=== PATIENT | male | born 1985 | race Caucasian/White ===

== ENCOUNTER 2024-05-23 09:50 | Outpatient (AMB) | payer BC, SELFPAY ==
--- NOTE | 2024-05-23 10:04 | A.OFFPC_ITS ---
Vital Signs 05/23/24 10:08 Height 5 ft 8 in Weight 225 lb 8 oz BMI 34.3 BP 135/66 Blood Pressure Location Rt brachial Position Sitting Respiration 16 Pulse 69 Pulse Source Pulse Oximeter Temp 98.6 F Temp Source Temporal Artery Scan Pulse Oximetry (%) 97 Oxygen Delivery Method Room Air Intake Visit Reasons: [employer] // Establish Care Intake Note: [employer] Allergies No Known Allergies Allergy (Verified 05/23/24 10:06) Medication List - Last Reconciled 05/23/24 by Kel Tran MD No Known Home Meds Tobacco use date assessed: 05/23/24 Dental Screening Dental Screen Date: 05/23/24 Did you have a dental visit in the last 12 months?: Yes Did you have a dental problem in the last 6 months where you did not have access to dental care?: No Was dental information given to patient?: Patient has dentist HPI [employer] // Establish Care HPI Details New Patient? ?? Prior PCP:? Dr Alicia Last office visit/CPE:? 3-4 yrs ago Acute issue(s):? Sleep Apnea Cysts on Arms and hip - Lipomas R Groin Pain ?? PMHx:?Denies SurgHx:? [place] Teeth FHx:? Dad: Bladder CA. Mom: Lung CA, HTN. GF Liver CA SocHx:?Nonsmoker. EtOH: About 1 dr per week. 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 1. Little interest or pleasure in doing things: not at all 2. Feeling down, depressed, or hopeless: not at all 3. Trouble falling or staying asleep, or sleeping too much: not at all 4. Feeling tired or having little energy: several days 5. Poor appetite or overeating: several days 6. Feeling bad about yourself - or that you are a failure or have let yourself or your family down: not at all 7. Trouble concentrating on things, such as reading the newspaper or watching television: not at all 8. Moving or speaking so slowly that other people could have noticed. Or the opposite - being so fidgety or restless that you have been moving around a lot more than usual: not at all 9. Thoughts that you would be better off or of hurting yourself in some way: not at all Total score: 2 Depression Screening Interpretation: Negative Depression Screening Done: Yes 40262 - PHQ-9 Billing: Yes Source: Developed by Drs. Otto Renteria, Comfort Gunter, Major Gomez and colleagues, with an educational karri from [employer]. Thrive Questionnaire Date Thrive assessed: 05/23/24 I am a: Patient What is your living situation today?: I have a steady place to live Within the past 12 months, did the food you bought not last and you didn't have the money to get more?: I choose not to answer this question Within the past 12 months, did you worry whether your food would run out before you got money to buy more?: Never true Do you have trouble paying for medicines?: No Do you have trouble getting transportation to medical appointments?: No Do you have trouble paying your heating and electricity bill?: No Do you have trouble taking care of your child, family member or friend?: No Do you have trouble with day-to-day activities such as bathing, preparing meals, shopping, managing finances, etc.?: No Are you currently unemployed and looking for a job?: No Are you interested in more education?: Yes Please select the resources that you would like help with: None Currently or been in a relationship where the following occur: No concerns reported THRIVE Score: 0 AUDIT C Alcohol Use Questionnaire (AUDIT-C) 1. How often do you have a drink containing alcohol?: 2-4 times a month 2. How many drinks containing alcohol do you have on a typical day when you are drinking?: 1 or 2 3. How often do you have six or more drinks on one occasion?: Less than monthly Total Score: 3 Score Reviewed/Action Taken: Yes ANDREW-7 AMB Questionnaire ANDREW-7 Date ANDREW - 7 assessed: 10/16/24 Feeling nervous, anxious, or on edge: 1 = Several days Not being able to stop or control worryin = Not at all Worrying too much about different things: 1 = Several days Trouble relaxin = Not at all Being so restless that it is hard to sit still: 0 = Not at all Becoming easily annoyed or irritable: 0 = Not at all Feeling afraid as if something awful might happen: 0 = Not at all Total ANDREW-7 score (0-4 normal; 5-9 mild; 10-14 moderate; 15-21 severe): 2 Source: Developed by Drs. Otto Renteria, Comfort Gunter, Major Gomez and colleagues, with an educational karri from [employer]. Review of Systems Const Denies chills, Denies fatigue, Denies fever(s), Denies headache(s) and Denies weakness ENT Denies dizziness and Denies headache(s) Card Denies chest pain, Denies lightheadedness, Denies dyspnea and Denies other ( Palpitations) Resp Denies cough, Denies dyspnea, Denies wheezing and Denies other ( shortness of breath) Musc Denies numbness and Denies tingling Neuro Denies dizziness, Denies headache(s), Denies numbness, Denies tingling, Denies paresthesias and Denies weakness Psych Denies anxiety and Denies depression Endo Denies fatigue Aller/Immun Denies wheezing Physical exam (Primary Care) Vital Signs: Last Vital Signs Temp 98.6 F 05/23/24 10:08 Pulse 69 05/23/24 10:08 Resp 16 05/23/24 10:08 BP 135/66 05/23/24 10:08 Pulse Ox 97 05/23/24 10:08 Oxygen Delivery Method Room Air 05/23/24 10:08 BMI result Body Mass Index 34.3 Tobacco/Smoking Status: Tobacco use Status Tobacco use date assessed 05/23/24 05/23/24 10:10 Patient Tobacco Use Status Never used Tobacco 05/23/24 10:10 e-Cigarette/Vaping Use Never Used 05/23/24 10:10 PHQ-9: PHQ-9 Score PHQ-9: Total score 2 05/23/24 10:20 Depression Screening Interpretation: Negative Thrive Assessment: Date of Thrive Assessment Date Thrive assessed 05/23/24 05/23/24 10:10 Currently or been in a relationship where the following occur: No concerns reported Const General: no acute distress and well developed Nutritional Appearance: well nourished Orientation/consciousness: patient oriented x3 [facility] Head: Yes normocephalic and Yes atraumatic Eyes General: appearance normal, both eyes and all related structures Pupils: Equal, round and reactive pupils present EOM: EOMs intact bilaterally Resp Effort & Inspection: normal respiratory effort Auscultation: clear to auscultation bilaterally Cardio Rate: regular rate Rhythm: regular rhythm Heart sounds: S1 normal heart sound present, S2 normal heart sound present, no gallops, no murmurs and no rubs Neuro General: patient oriented x3 and gait normal Cranial nerves: Yes Equal, round and reactive pupils present Psych Affect: normal affect Coding Level of Care Code New Pt Level 3 (07960) Diagnoses Sleep apnea G47.30 Cyst of skin L72.9 Testicular pain N50.819 Family planning Z30.09 Laboratory exam ordered as part of routine general medical examination Z00.00 Assessment & Plan Assessment & Plan (1) Sleep apnea: Code(s): G47.30 - Sleep apnea, unspecified Category: Medical Plan: Patient?has?video?of?apneic?events?witnessed?by?his? Referred?to?Sleep?Medicine (2) Cyst of skin: Code(s): L72.9 - Follicular cyst of the skin and subcutaneous tissue, unspecified Category: Medical Plan: These?are?lipomas He?will?call?or?return?to?office?if?getting?large/irritated (3) Testicular pain: Code(s): N50.819 - Testicular pain, unspecified Category: Medical Plan: Right?testicular?pain Small?nodule?at?top?of?right?testicle?is?likely?epididymal?cyst No?evidence?of?hernia?on?palpation?today Check?ultrasound Encouraged?undergarments?with?good?support?and?cooling (4) Family planning: Code(s): Z30.09 - Encounter for other general counseling and advice on contraception Category: Social Hx Plan: Patient?would?like?a?referral?to?urology?and?has?a?urologist?in?mind?but?does?no t?recall?who. He?will?call?to?leave?a?message?letting?me?know?and?I?will?make?the?referral (5) Laboratory exam ordered as part of routine general medical examination: Code(s): Z00.00 - Encounter for general adult medical examination without abnormal findings Category: Medical Plan: Check?lab Orders: Orders Prostate Specific Antigen Scr Today Z12.5 - Encounter for screening for malignant neoplasm of prostate UA and rflx microscopic Today Z00.00 - Encounter for general adult medical examination without abnormal findings US scrotum Today N50.819 - Testicular pain, unspecified Comprehensive [place]. Panel Fast Today Z00.00 - Encounter for general adult medical examination without abnormal findings Lipid Panel Today Z00.00 - Encounter for general adult medical examination without abnormal findings Microalbumin, Random (w Creat) Today I10 - Essential (primary) hypertension TSH reflex Free T4 Today Z00.00 - Encounter for general adult medical examination without abnormal findings Referrals Sleep Medicine Referral G47.30 - Sleep apnea, unspecified
[2024-05-23 10:08] VITALS: BP 135/66; PULSE 69; RESP 16; TEMP 37; O2SAT 97; BMI 34.3
== END 2024-05-23 10:57 | disposition home or self-care (01) ==
PROVIDERS: Visit Provider Family Medicine
DX: G47.30 Sleep apnea, unspecified (principal); L72.9 Follicular cyst of the skin and subcutaneous tissue, unspecified; N50.819 Testicular pain, unspecified; Z30.09 Encounter for other general counseling and advice on contraception

== ENCOUNTER → 2024-05-23 09:50 | Outpatient (BNVA) | payer BC, SELFPAY | PROVIDERS: Visit Provider Family Medicine ==

== ENCOUNTER 2024-05-25 09:56 | Outpatient (REF) | payer BC, SELFPAY ==
[2024-05-25 11:44] LABS: Appearance Urine Clear; Color Urine Yellow; Glucose Urine UA Negative (Negative); Leukocyte Esterase Urine Negative (Negative); Nitrite Urine Negative (Negative); PH 6.5 (5.0-9.0); Urine Blood Negative (Negative); Urine Ketones Negative (Negative); Urine Protein Negative (Neg-Trace)
[2024-05-25 13:33] LABS: Creatinine Urine 159.02 mg/dL; Microalbum/Creatinine Ratio Ur 3.7 ug/mg cr (<30)
[2024-05-25 13:34] LABS: Alanine Aminotransferase 28 U/L (0-40); Albumin Level 4.3 g/dL (3.5-5.0); Alkaline Phosphatase 53 U/L (39-117); Anion Gap 14 (12-20); Aspartate Amino Transferase 22 U/L (5-37); Bilirubin Total 2.3 mg/dL (0.0-1.0); Blood Urea Nitrogen 16 mg/dL (9-16); Calcium 9.3 mg/dL (8.4-10.2); Carbon Dioxide 27 mmol/L (22-29); Chloride 103 mmol/L (96-108); Cholesterol 216 mg/dL (<200); Estimated Glomerular Filt Rate > 60; Glucose Fasting 98 mg/dL (60-99); HDL Cholesterol 43 mg/dL (>40); LDL Cholesterol Calculated 147 mg/dL (<100); Sodium 140 mmol/L (135-145); Total Protein 7.1 g/dL (6.5-8.0); Triglycerides 131 mg/dL (<150)
[2024-05-25 13:46] LABS: Prostate Specific Antigen Scr 0.69 ng/mL (<0.05-4.0)
[2024-05-25 13:50] LABS: TSH reflex Free T4 0.88 uIU/mL (0.32-4.0)
== END 2024-05-25 09:57 | disposition home or self-care (01) ==
LOC: HO.WFDLDS 09:56
PROVIDERS: Visit Provider Family Medicine
DX: Z00.00 Encounter for general adult medical examination without abnormal findings (principal); Z12.5 Encounter for screening for malignant neoplasm of prostate; I10 Essential (primary) hypertension
CPT/HCPCS: 36415; 80053; 80061; 81003; 82043; 82570; 84153; 84443

== ENCOUNTER 2024-06-08 15:48 | Outpatient (REF) | payer BC, SELFPAY | END 2024-06-08 15:49 | disposition home or self-care (01) | LOC: HO.US 15:48 | PROVIDERS: PCP Family Medicine; Visit Provider Family Medicine | DX: N50.819 Testicular pain, unspecified (principal) | CPT/HCPCS: 76870 ==

== ENCOUNTER → 2024-06-08 15:49 | Outpatient (BNV) | payer BC, SELFPAY | PROVIDERS: PCP Family Medicine; Visit Provider Radiology Diagnostic Radiology | DX: N50.3 Cyst of epididymis (principal) | CPT/HCPCS: 76870 ==

== ENCOUNTER 2024-08-10 11:57 | Outpatient (AMB) | payer BC, SELFPAY ==
--- NOTE | 2024-08-10 12:04 | A.OFFPC_ITS ---
Vital Signs 08/10/24 12:09 Height 5 ft 8 in Weight 222 lb BMI 33.8 BP 127/72 Blood Pressure Location Rt brachial Position Sitting Respiration 13 Pulse 77 Pulse Source Pulse Oximeter Pulse Oximetry (%) 97 Oxygen Delivery Method Room Air Intake Visit Reasons: Physical Intake Note: Annual Physical Customer Account Representative Required: No Allergies No Known Allergies Allergy (Verified 08/10/24 12:24) Medication List - [facility]10[facility]24 [facility] No Known Home Meds Tobacco use date assessed: 05/23/24 Dental Screening Dental Screen Date: 08/10/24 Did you have a dental visit in the last 12 months?: Yes Did you have a dental problem in the last 6 months where you did not have access to dental care?: No Was dental information given to patient?: Patient has dentist HPI HPI Comments History of Present Illness Details 39 y/o M with PARAMJIT, lipomas of skin, hype rlipidemia, obesity SurgHx: [place] Teeth FHx: Dad: Bladder CA. Mom: Lung CA, HTN. Mom 03/2024, GF Liver CA SocHx: Nonsmoker. EtOH: About 1 dr per week. No drugs Specialists Uro first consult 08/27/24 Sleep Med - sleep study ordered and pending Health Maintenance Flu UTD Tdap done today Here today for CPE Optho: contacts, last eye exam 2022 Social History - Has a and lost his mother in t he past year, impacting his lifestyle and contributing to anxiety and overeating. - Drinks alcohol socially, without exces s. - Reports recent inactivity in physical exercise. Review of Systems - Gastrointestinal: Denies abdominal hamlet n, nausea, vomiting, significant weight loss, or changes in bowel or urinary habits. - Musculoskeletal: Denies swelling or te nderness in the limbs. - Dermatological: Denies new skin lesion s aside from known benign lipomas. Physical Exam General: Cooperative, healthy appearing, comfortable, no acute distress and well developed Orientation: Patient oriented x3 Limitations: No limitations Head: Normal to inspection Ears: Hearing grossly normal bilaterally Nose: Normal external nose present Face and sinus: Normal facial exam Eyes: Appearance normal, both eyes and all related structures Neck: Normal visual inspection and Yes full ROM Respiratory: Normal respiratory effort and able to speak in complete sentences. Clear to auscultation bilaterally Cardiovascular: Regular rate and rhythm. Normal S1 and S2 GI: Normal to inspection. Soft to palpation and nontender Skin: No rashes or lesions noted, lipomas of bilat upper arms Neuro: Patient oriented x3 Extremities: Normal to inspection, no swelling noted Results Labs 05/25/24 hyperlipipdemia, elevated bili, normal PSA 06/08/24 US see below L epidydamyal cyst Plan - Monitor bilirubin and lipid profile at next annual physical examination unless symptoms develop. - Encourage physical activity and dietar y modifications to manage cholesterol and weight gain. - No immediate intervention required for lipomas unless growth or changes occur. - Follow up on sleep study and urology r eferral for continued evaluation. - Advise on self-monitoring for new or w orsening symptoms and timely reporting if they occur. Patient was informed and verbally consented to the use of an ambient scribe for clinic note documentation during this visit. Discussion Notes During the visit, it was discussed with the patient that his elevated bilirubin is not alarming, given the normal liver function tests and absence of other symptoms. The option to repeat bilirubin and lipid profile tests was discussed, and it was decided to reassess at his next annual examination unless changes occur. His borderline cholesterol does not warrant medication; instead, lifestyle changes focusing on diet and exercise were recommended. His anxiety related to lifestyle changes and recent life events were acknowledged, and while he declined medications, I encouraged personal self-care practices. The presence of benign lipomas was confirmed, with no action needed unless they change in size or cause discomfort. Patient was informed about the walk-in policy for lab tests and the available support at our practice. Education on recognizing symptoms requiring urgent evaluation was provided, particularly concerning his gastrointestinal complaints. Patient Instructions - Increase physical activity and maintai n a healthy diet to manage cholesterol levels. - Monitor existing lipomas for any flores es and report if they become painful or enlarged. - Attend the scheduled urology consultat ion and sleep study. - Return to the clinic if any new or wor sening symptoms arise, especially abdominal pain. - Plan and schedule the next annual phys ical examination ahead. - Consider personal strategies to manage anxiety and provide self-care. - Use the patient portal to contact us f or referrals or questions if needed. 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 1. Little interest or pleasure in doing things: not at all 2. Feeling down, depressed, or hopeless: not at all 3. Trouble falling or staying asleep, or sleeping too much: not at all 4. Feeling tired or having little energy: several days 5. Poor appetite or overeating: more than half the days 6. Feeling bad about yourself - or that you are a failure or have let yourself or your family down: not at all 7. Trouble concentrating on things, such as reading the newspaper or watching television: not at all 8. Moving or speaking so slowly that other people could have noticed. Or the opposite - being so fidgety or restless that you have been moving around a lot more than usual: not at all 9. Thoughts that you would be better off or of hurting yourself in some way: not at all Total score: 3 Depression Screening Interpretation: Negative Depression Screening Done: Yes 13062 - PHQ-9 Billing: Yes Source: Developed by Drs. Otto Renteria, Comfort Gunter, Major Gomez and colleagues, with an educational karri from [employer]. Thrive Questionnaire Date Thrive assessed: 08/10/24 I am a: Patient What is your living situation today?: I have a steady place to live Within the past 12 months, did the food you bought not last and you didn't have the money to get more?: Never true Within the past 12 months, did you worry whether your food would run out before you got money to buy more?: Never true Do you have trouble paying for medicines?: No Do you have trouble getting transportation to medical appointments?: No Do you have trouble paying your heating and electricity bill?: No Do you have trouble taking care of your child, family member or friend?: No Do you have trouble with day-to-day activities such as bathing, preparing meals, shopping, managing finances, etc.?: No Are you currently unemployed and looking for a job?: No Are you interested in more education?: No Please select the resources that you would like help with: None Currently or been in a relationship where the following occur: No concerns reported THRIVE Score: 0 AUDIT C Alcohol Use Questionnaire (AUDIT-C) 1. How often do you have a drink containing alcohol?: 2-4 times a month 2. How many drinks containing alcohol do you have on a typical day when you are drinking?: 3 or 4 3. How often do you have six or more drinks on one occasion?: Less than monthly Total Score: 4 Score Reviewed/Action Taken: Yes ANDREW-7 AMB Questionnaire ANDREW-7 Date ANDREW - 7 assessed: 08/10/24 Feeling nervous, anxious, or on edge: 1 = Several days Not being able to stop or control worryin = Several days Worrying too much about different things: 1 = Several days Trouble relaxin = Not at all Being so restless that it is hard to sit still: 1 = Several days Becoming easily annoyed or irritable: 1 = Several days Feeling afraid as if something awful might happen: 0 = Not at all Total ANDREW-7 score (0-4 normal; 5-9 mild; 10-14 moderate; 15-21 severe): 5 Source: Developed by Drs. Otto Renteria, Comfort Gunter, Major Gomez and colleagues, with an educational karri from [employer]. ANDREW-7 Assessment Billing ANDREW-7 Assessment Tool: ANDREW-7 Assessment 07978 Physical exam (Primary Care) Vital Signs: Last Vital Signs Pulse 77 08/10/24 12:09 Resp 13 08/10/24 12:09 BP 127/72 08/10/24 12:09 Pulse Ox 97 08/10/24 12:09 Oxygen Delivery Method Room Air 08/10/24 12:09 BMI result Body Mass Index 33.8 BMI Assessment/Plan discussion: High BMI High, discussed plan: lifestyle Tobacco/Smoking Status: Tobacco use Status Tobacco use date assessed 05/23/24 08/10/24 12:04 Patient Tobacco Use Status Never used Tobacco 08/10/24 12:04 e-Cigarette/Vaping Use Never Used 08/10/24 12:04 PHQ-9: PHQ-9 Score PHQ-9: Total score 3 08/10/24 13:05 Depression Screening Interpretation: Negative Thrive Assessment: Date of Thrive Assessment Date Thrive assessed 08/10/24 08/10/24 12:07 Currently or been in a relationship where the following occur: No concerns reported Immunizations Boostrix Tdap 2.5 Lf unit-8 mcg-5 Lf/0.5 mL intramuscular syringe Performing Provider: PRATIBHA Nash [place] [facility] Administered by: Madison Amador RN on 08/10/24 13:05 Dose Route Admin Location Dispensed Lot Number Expiration Date [facility] [employer] 0.5 mL IM Left Deltoid 0.5 mL [id number] 10/24/26 [id number] Stylect VIS Given Date VIS Provided VIS Publication Date 08/10/24 Single Vaccine 21 Eligibility Eligibility Date Funding Source Not [facility] Eligible 08/10/24 Private Results Reviewed Results Reviewed: [address] [address] Ultrasound Report Signed Patient: Satinder Chaves MR#: [id number] : 1985 Acct:[id number] Age/Sex: 39 / M ADM Date: 06/08/24 Loc: HO. Attending Dr: Kel Tran MD Ordering Physician: Kel Tran MD Date of Service: 06/08/24 Procedure(s): US scrotum Accession Number(s): [id number] cc: Kel Tran MD~ EXAMINATION: US SCROTUM CLINICAL INFORMATION: Right testicular and groin discomfort. COMPARISON: None available. TECHNIQUE: A sonogram of the scrotum was performed assessing major-scale appearance and color Doppler flow. Spectral Doppler analysis of the arterial and venous flow were performed in the testes bilaterally. FINDINGS: RIGHT: Right testicle measures 3.6 x 2.3 x 3.0 cm, volume 12.9 mL. No focal testicular parenchymal lesions are visualized. Spectral Doppler analysis of the arterial and venous flow is normal in the right testis. Right epididymal head is normal in size. No right hydrocele or varicocele is seen. Right epididymal Doppler flow is normal. LEFT: Left testicle measures 3.5 x 2.1 x 2.4 cm, volume 9.0 mL. No focal testicular parenchymal lesions are visualized. Spectral Doppler analysis of the arterial and venous flow is normal in the left testis. Left epididymal head is normal in size. There is small left epididymal anechoic cyst measuring 0.2 x 0.3 x 0.1 cm No left hydrocele or varicocele is seen. Left epididymal Doppler flow is normal. US/US scrotum IMPRESSION: Small left epididymal cyst. Otherwise unremarkable ultrasound scrotum. Electronically signed by: Mykel Lyman MD 08/10/2024 08:05 AM EST Dictated By: Mykel Lyman MD Signed By: <Electronically signed by Mykel Lyman MD in OV> 08/10/24 0805 DD/ 1606 TD/TT: 06/08/24 1612 Panel Machine Tender: DIDIER Coding Level of Care Code Est Pt Prev Care 40-64y(82895) Diagnoses Encounter for general adult medical examination without abnormal findings Z00.00 Elevated bilirubin R17 BMI 33.0-33.9,adult Z68.33 Moderate mixed hyperlipidemia not requiring statin therapy E78.2 Hyperlipidemia type: moderate mixed hyperlipidemia not requiring statin therapy Class 1 obesity due to excess calories without serious comorbidity with body mass index (BMI) of 33.0 to 33.9 in adult E66.811; E66.09; Z68.33 Obesity type: due to excess calories Serious obesity comorbidity presence: without serious comorbidity Epididymal cyst N50.3 Need for Tdap vaccination Z23 Additional Codes ANDREW-7 Assessment Billing - ANDREW-7 Assessment Tool: ANDREW-7 Assessment 48753 ([id number]) PHQ-9 - 32873 - PHQ-9 Billing: Yes ([id number]) Assessment & Plan Assessment & Plan (1) Encounter for general adult medical examination without abnormal findings: Code(s): Z00.00 - Encounter for general adult medical examination without abnormal findings Category: Medical (2) Elevated bilirubin: Code(s): R17 - Unspecified jaundice Category: Medical (3) BMI 33.0-33.9,adult: Code(s): Z68.33 - Body mass index [BMI] 33.0-33.9, adult Category: Medical (4) Hyperlipidemia: Code(s): E78.5 - Hyperlipidemia, unspecified Category: Medical Qualifiers: Hyperlipidemia type: moderate mixed hyperlipidemia not requiring statin therapy Qualified Code(s): E78.2 - Mixed hyperlipidemia (5) Class 1 obesity with body mass index (BMI) of 33.0 to 33.9 in adult: Code(s): E66.811 - Obesity, class 1; Z68.33 - Body mass index [BMI] 33.0-33.9, adult Category: Medical Qualifiers: Obesity type: due to excess calories Serious obesity comorbidity presence: without serious comorbidity Qualified Code(s): E66.811 - Obesity, class 1; E66.09 - Other obesity due to excess calories; Z68.33 - Body mass index [BMI] 33.0-33.9, adult (6) Epididymal cyst: Comment: LEFT US 06/2024 Code(s): N50.3 - Cyst of epididymis Category: Medical (7) Need for Tdap vaccination: Code(s): Z23 - Encounter for immunization Plan . Orders: Orders Lipid Panel 1 Year E78.5 - Hyperlipidemia, unspecified, R17 - Unspecified jaundice Comprehensive Tiona. Panel Fast 1 Year E78.5 - Hyperlipidemia, unspecified, R17 - Unspecified jaundice TDaP Immunization Today Z23 - Encounter for immunization Hemoglobin A1c 1 Year E78.5 - Hyperlipidemia, unspecified, R17 - Unspecified jaundice Microalbumin, Random (w Creat) 1 Year E78.5 - Hyperlipidemia, unspecified, R17 - Unspecified jaundice TSH reflex Free T4 1 Year E78.5 - Hyperlipidemia, unspecified, R17 - Unspecified jaundice PSA, Ultra Sensitive 1 Year E78.5 - Hyperlipidemia, unspecified, R17 - Unspecified jaundice Hepatitis A,B,C Profile 1 Year E78.5 - Hyperlipidemia, unspecified, R17 - Unspecified jaundice Patient Instructions: Health screenings for men ages 40 to 64 You should visit your health care provider regularly, even if you feel healthy. The purpose of these visits is to: Screen for medical issues Assess your risk for future medical problems Encourage a healthy lifestyle Update vaccinations and other preventive care services Help you get to know your provider in case of an illness Information Even if you feel fine, you should still see your provider for regular checkups. These visits can help you avoid problems in the future. For example, the only way to find out if you have high blood pressure is to have it checked regularly. High blood sugar and high cholesterol level also may not have any symptoms in the early stages. Simple blood tests can check for these conditions. There are specific times when you should see your provider or receive specific health screenings. The [place] Preventive Services Task Force publishes a list of recommended screenings. Below are screening guidelines for men ages 40 to 64. BLOOD PRESSURE SCREENING Have your blood pressure checked at least once every year. Watch for blood pressure screenings in your area. Ask your provider if you can stop in to have your blood pressure checked. Ask your provider if you need your blood pressure checked more often if: You have diabetes, heart disease, kidney problems, or are overweight or have certain other health conditions You have a first-degree relative with high blood pressure You are Black Your blood pressure top number is from 120 to 129 mm Hg, or the bottom number is from 70 to 79 mm Hg If the top number is 130 mm Hg or greater or the bottom number is 80 mm Hg or greater, this is considered stage 1 hypertension. Schedule an appointment with your provider to learn how you can lower your blood pressure. Effects of age on blood pressure CHOLESTEROL SCREENING Cholesterol screening should begin at age 35 for men with no known risk factors for coronary heart disease. Repeat cholesterol screening should take place: Every 5 years for men with normal cholesterol levels More often if changes occur in lifestyle (including weight gain and diet) More often if you have diabetes, heart disease, kidney problems, or certain other conditions COLORECTAL CANCER SCREENING If you are under age 45, talk to your provider about getting screened. You may need to be screened if you have a strong family history of colon cancer or polyps. Screening may also be considered if you have risk factors such as a history of inflammatory bowel disease or polyps. If you are age 45 to 75, you should be screened for colorectal cancer. There are several screening tests available: A stool-based fecal occult blood (gFOBT) or fecal immunochemical test (FIT) every year A stool sDNA test every 1 to 3 years Flexible sigmoidoscopy every 5 years or every 10 years with stool testing FIT done every year CT colonography (virtual colonoscopy) every 5 years Colonoscopy every 10 years You may need a colonoscopy more often if you have risk factors for colorectal cancer, such as: Ulcerative colitis A personal or family history of colorectal cancer A history of growths in your colon called adenomatous polyps DENTAL EXAM Go to the dentist once or twice every year for an exam and cleaning. Your dentist will evaluate if you have a need for more frequent visits. DIABETES SCREENING All adults who do not have risk factors for diabetes should be screened starting at age 35 and repeated every 3 years. If you have other risk factors for diabetes, such as a first degree relative with diabetes, overweight or obesity, high blood pressure, prediabetes, or a history of heart disease, you may be tested more often. If you are overweight and have other risk factors, such as high blood pressure and are planning to become , screening is recommended. EYE EXAM Have an eye exam every 2 to 4 years ages 40 to 54 and every 1 to 3 years ages 55 to 64. Your provider may recommend more frequent eye exams if you have vision problems or glaucoma risk. Have an eye exam that includes an examination of your retina (back of your eye) at least every year if you have diabetes. IMMUNIZATIONS Commonly needed vaccines include: Flu shot: get one every year COVID-19 vaccine: ask your provider what is best for you Tetanus-diphtheria and acellular pertussis (Tdap) vaccine: have as one of your tetanus-diphtheria vaccines if you did not receive it as an adolescent Tetanus-diphtheria: have a booster (or Tdap) every 10 years Varicella vaccine: receive 2 doses if you never had chickenpox or the varicella vaccine and were born in 1979 or after Hepatitis B vaccine: receive 2, 3, or 4 doses, depending on your exact circumstances, if you did not receive these as a child or adolescent, until age 59 Shingles (herpes zoster) vaccine: at or after age 50 Ask your provider if you should receive other immunizations, especially if you have certain medical conditions, such as diabetes or are at increased risk for some diseases such as pneumonia. INFECTIOUS DISEASE SCREENING Screening for hepatitis C: all adults ages 18 to 79 should get a one-time test for hepatitis C. Screening for human immunodeficiency virus (HIV): all people ages 15 to 65 should get a one-time test for HIV. Depending on your lifestyle and medical history, you may need to be screened for infections such as syphilis, chlamydia, and other infections. LUNG CANCER SCREENING You should have an annual screening for lung cancer with low-dose computed tomography (LDCT) if: You are age 50 to 80 years AND You have a 20 pack-year smoking history AND You currently smoke or have quit within the past 15 years OSTEOPOROSIS SCREENING If you are age 50 to 64 and have risk factors for osteoporosis, you should discuss screening with your provider. Risk factors can include long-term steroid use, low body weight, smoking, heavy alcohol use, having a fracture after age 50, or a family history of hip fracture or osteoporosis. Osteoporosis PHYSICAL EXAM All adults should visit their provider from time to time, even if they are healthy. The purpose of these visits is to: Screen for diseases Assess risk of future medical problems Encourage a healthy lifestyle Update vaccinations and other preventive care services Maintain a relationship with a provider in case of an illness Your height, weight, and body mass index (BMI) should be checked at every exam. During your exam, your provider may ask you about: Depression and anxiety Diet and exercise Alcohol and tobacco use Safety, such as use of seat belts and smoke detectors Your medicines and risk for interactions PROSTATE CANCER SCREENING If you're 55 through 69 years old, before having the test, talk to your provider about the pros and cons of having a PSA test. Ask about: Whether screening decreases your chance of dying from prostate cancer. Whether there is any harm from prostate cancer screening, such as side effects from testing or overtreatment of cancer when discovered. Whether you have a higher risk of prostate cancer than others. If you are age 55 or younger, screening is not generally recommended. You should talk with your provider about if you have a higher risk for prostate cancer. Risk factors include: Having a family history of prostate cancer (especially a brother or father) Being If you choose to be tested, the PSA blood test is repeated over time (yearly or less often), though the best frequency is not known. Prostate examinations are no longer routinely done on men with no symptoms. Prostate cancer SKIN EXAM Your provider may check your skin for signs of skin cancer, especially if you're at high risk. People at high risk include those who have had skin cancer before, have close relatives with skin cancer, or have a weakened immune system. TESTICULAR EXAM The [place] Preventive Services Task Force (USPSTF) now recommends against performing testicular self-exams. Doing testicular self-exams has been shown to have little to no benefit.
[2024-08-10 12:09] VITALS: BP 127/72; PULSE 77; RESP 13; O2SAT 97; BMI 33.8
== END 2024-08-10 13:01 | disposition home or self-care (01) ==
PROVIDERS: PCP Family Medicine; Visit Provider Nurse Practitioner Family
DX: Z00.00 Encounter for general adult medical examination without abnormal findings (principal); R17 Unspecified jaundice; Z68.33 Body mass index [BMI] 33.0-33.9, adult; E78.2 Mixed hyperlipidemia; E66.811 Obesity, class 1; E66.09 Other obesity due to excess calories; N50.3 Cyst of epididymis; Z23 Encounter for immunization

== ENCOUNTER → 2024-08-10 11:57 | Outpatient (BNVA) | payer BC, SELFPAY | PROVIDERS: PCP Family Medicine; Visit Provider Nurse Practitioner Family | DX: Z00.00 Encounter for general adult medical examination without abnormal findings (principal); Z23 Encounter for immunization; R17 Unspecified jaundice; E78.2 Mixed hyperlipidemia; E66.811 Obesity, class 1; E66.09 Other obesity due to excess calories; Z68.33 Body mass index [BMI] 33.0-33.9, adult; N50.3 Cyst of epididymis | CPT/HCPCS: 90471; 90715; 96127 ==

== ENCOUNTER 2024-08-27 10:55 | Outpatient (AMB) | payer BC, SELFPAY ==
--- NOTE | 2024-08-27 11:01 | MHC.OFFVIS ---
Intake Visit Reasons: Vasectomy consult Intake Note: Patient is present for VASECTOMY CONSULT Urology Medication:NONE Antibiotic Allergy:NONE Blood Thinner:NONE Construction Lineman Required: No Allergies No Known Allergies Allergy (Verified 08/27/24 11:38) Medication List - Last Reconciled 08/27/24 by PRATIBHA Vazquez No Known Home Meds HPI Comments Details: Alex is a very pleasant 39-year-old male patient of Dr. Tran. He presents to the office today for - vasectomy evaluation Vasectomy evaluation The patient presents for vasectomy consultation.? 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 Patient education has been provided via AUA video, via printed information, risks of failure, recovery time, bruising and potential pain syndrome have been stressed Discussion today focused on the presence of vasectomy and the risks, benefits and alternatives that are available. Vasectomy as intended as a permanent form of control. Printed information and literature was provided to the patient. Overall there is a one in 2500 failure rate. This can occur at any time after vasectomy. Risks were discussed highlighting hematoma, spermatocele, epididymal congestion, development of sperm antibodies, and development of chronic pain estimated between 1-5%. The procedure was reviewed in detail. Anatomical diagrams of the male genitalia were used to explain the location of the vas deferens. The vas deferens will be transected, the proximal end will be cauterized, a metal clip would be applied to separate the 2 vas deferens ends. It was explained the procedure will be done in the office and takes approximately 10-15 minutes. Less common problems that arise with vasectomy include hematoma, bleeding, allergic reaction to anesthetic, epididymal infection, epididymal congestion, scrotal discomfort, spermatic leak, spermatic granuloma and the possibility of antisperm antibodies. He understands these risks and wishes to proceed. Consent was signed at the office today. He also understands that it takes 12 weeks for sperm to fully clear the system. He will need to provide a semen sample at 12 weeks and if this is not clear a 2nd sample at 16 weeks. Medical clearance to stop using protection will only be provided if he satisfies published criteria for sperm clearance. 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 Current occupational exposures/hazards: No Cognitive needs: No Hearing needs: No Vision needs: Yes Review of Systems Const All systems reviewed & are unremarkable except as noted in HPI and below Physical Exam Const General: cooperative, comfortable, no acute distress, well developed, alert and awake Orientation/consciousness: patient oriented x3 HEENT Head: Yes normal to inspection, Yes normocephalic and Yes atraumatic Ears: hearing grossly normal bilaterally Eyes General: appearance normal, both eyes and all related structures Neck Neck: Yes normal visual inspection and Yes trachea midline Chest Chest palpation & inspection: normal inspection of the chest Resp Effort & Inspection: normal respiratory effort and able to speak in complete sentences Cardio Rate: regular rate GI Inspection: Yes normal to inspection General: Yes no CVA tenderness Back/Spine/Pelvis Back: no CVA tenderness Skin General skin exam: no rashes or lesions noted Neuro General: patient oriented x3 Extrem General: Yes normal to inspection Psych Appearance: grossly normal and well kempt Mental Status: mental status grossly normal Speech and movement: Normal speech and movement present and Clear speech present Affect: normal affect Attitude: cooperative Thought process: Normal thought process present Thought content: Normal thought content present Results AMB Urinalysis, Automated UA Leukoctes Cancelled Reji/uL Last Edit by COCO Omalley on 08/27/24 11:18 UA Leukoctes previously reported as 0 Baron Henley 08/27/24 11:18 UA Nitrite Cancelled Last Edit by COCO Omalley on 08/27/24 11:18 UA Nitrite previously reported as Negative Baron Henley 08/27/24 11:18 UA Urobilinogen Cancelled mg/dL Last Edit by COCO Omalley on 08/27/24 11:18 UA Urobilinogen previously reported as 1 Baron Henley 08/27/24 11:18 UA Protein Cancelled mg/dL Last Edit by COCO Omalley on 08/27/24 11:18 UA Protein previously reported as 30 Baron Henley 08/27/24 11:18 UA pH Cancelled Last Edit by COCO Omalley on 08/27/24 11:18 UA pH previously reported as 6.0 Baron Henley 08/27/24 11:18 UA Blood Cancelled Umesh/uL Last Edit by COCO Omalley on 08/27/24 11:18 UA Blood previously reported as 0 Baron Henley 08/27/24 11:18 UA Specific Tererro Cancelled Last Edit by COCO Omalley on 08/27/24 11:18 UA Specific Tererro previously reported as 1.020 Baron Henley 08/27/24 11:18 UA Ketone Cancelled Last Edit by COCO Omalley on 08/27/24 11:18 UA Ketone previously reported as Positive Baron Henley 08/27/24 11:18 UA Bilirubin Cancelled mg/dL Last Edit by COCO Omalley on 08/27/24 11:18 UA Bilirubin previously reported as 2 Baron Henley 08/27/24 11:18 UA Glucose Cancelled mg/dL Last Edit by COCO Omalley on 08/27/24 11:18 UA Glucose previously reported as 0 Baron Henley 08/27/24 11:[address] ADAN NEED IT Results Reviewed Results Reviewed: Laboratory Last Values Urine pH (Auto) Cancelled 08/27/24 11:12 Specific Tererro (Auto) Cancelled 08/27/24 11:12 Urine Protein (Auto) Cancelled 08/27/24 11:12 Glucose (UA)(Auto) Cancelled 08/27/24 11:12 Urine Ketones (Auto) Cancelled 08/27/24 11:12 Urine Blood (Auto) Cancelled 08/27/24 11:12 Urine Nitrite (Auto) Cancelled 08/27/24 11:12 Urine Bilirubin (Auto) Cancelled 08/27/24 11:12 Urine Urobilinogen (Auto) Cancelled 08/27/24 11:12 Leukocyte Esterase (Auto) Cancelled 08/27/24 11:12 Date of Service: 06/08/24 EXAMINATION: US SCROTUM CLINICAL INFORMATION: Right testicular and groin discomfort. COMPARISON: None available. TECHNIQUE: A sonogram of the scrotum was performed assessing major-scale appearance and color Doppler flow. Spectral Doppler analysis of the arterial and venous flow were performed in the testes bilaterally. FINDINGS: RIGHT: Right testicle measures 3.6 x 2.3 x 3.0 cm, volume 12.9 mL. No focal testicular parenchymal lesions are visualized. Spectral Doppler analysis of the arterial and venous flow is normal in the right testis. Right epididymal head is normal in size. No right hydrocele or varicocele is seen. Right epididymal Doppler flow is normal. LEFT: Left testicle measures 3.5 x 2.1 x 2.4 cm, volume 9.0 mL. No focal testicular parenchymal lesions are visualized. Spectral Doppler analysis of the arterial and venous flow is normal in the left testis. Left epididymal head is normal in size. There is small left epididymal anechoic cyst measuring 0.2 x 0.3 x 0.1 cm No left hydrocele or varicocele is seen. Left epididymal Doppler flow is normal. IMPRESSION: Small left epididymal cyst. Otherwise unremarkable ultrasound scrotum. Assessment & Plan Assessment & Plan (1) Epididymal cyst: Comment: LEFT US 06/2024 Code(s): N50.3 - Cyst of epididymis Category: Medical (2) Vasectomy evaluation: Code(s): Z30.09 - Encounter for other general counseling and advice on contraception Category: Medical (3) Anxiety about health: Code(s): R45.89 - Other symptoms and signs involving emotional state Category: Medical Plan Vasectomy was discussed at length; risks and benefits All questions were answered. Recent scrotal ultrasound results reviewed with the patient today; as noted above Prescriptions provided; we discussed importance of bringing them to office day of procedure. Consent obtained. We discussed semen analysis with in office verses fellows kit. Will schedule for vasectomy as discussed. Follow-up per doctor's orders; or sooner with any issues, concerns, and or questions. Medications: New diazepam Take medication after arrival at office 2 mg PO BID 1 day PRN 2 tabs 0RF anxiety R45.89 - Other symptoms and signs involving emotional state tramadol Take medication after arrival at office 50 mg PO Q8H 3 days PRN 10 tabs 0RF pain N43.3 - Hydrocele, unspecified Patient Instructions: The patient had an opportunity to ask questions regarding the treatment plan. All questions were answered. Physical exam, labs, and imaging were discussed and reviewed in detail. As well as risks, benefits, and discussion of treatment choices. No major barriers to understanding were identified. The patient expressed understanding and agreement with the above treatment plan. The patient was made aware they should contact our office by phone for worsening of their current condition, the appearance of new symptoms, or with any questions or concerns. Compliance is encouraged with any medications and follow up testing that is ordered. It is a privilege to be allowed the opportunity to participate in? your urological care.? Again, if you have any questions or concerns If you have any questions or concerns please do not hesitate to contact me. The office is [phone]. This note is constructed using voice recognition software. While every effort has been made to ensure accuracy data center architect errors may have been included. Yours sincerely, PRATIBHA Vazquez Coding Level of Care Code New Pt Level 4 (82258) Diagnoses Epididymal cyst N50.3 Vasectomy evaluation Z30.09 Anxiety about health R45.89
== END 2024-08-27 11:42 | disposition home or self-care (01) ==
PROVIDERS: PCP Family Medicine; Visit Provider Nurse Practitioner Family
DX: N50.3 Cyst of epididymis (principal); Z30.09 Encounter for other general counseling and advice on contraception; R45.89 Other symptoms and signs involving emotional state; Z13.9 Encounter for screening, unspecified
CPT/HCPCS: 99204

== ENCOUNTER → 2024-08-27 10:55 | Outpatient (BNVA) | payer BC, SELFPAY | PROVIDERS: PCP Family Medicine; Visit Provider Nurse Practitioner Family | DX: Z30.09 Encounter for other general counseling and advice on contraception (principal); N50.3 Cyst of epididymis; F41.8 Other specified anxiety disorders | CPT/HCPCS: 81003 ==

== ENCOUNTER 2024-10-10 14:50 | Outpatient (AMB) | payer BC, SELFPAY ==
--- NOTE | 2024-10-10 15:20 | MHC.OFFVIS ---
Intake Visit Reasons: vasectomy(SET) Intake Note: Patient is present for VASECTOMY Urology Medication:NONE Antibiotic Allergy:NONE Blood Thinner:NONE Structures Engineer Required: No Allergies No Known Allergies Allergy (Verified 10/10/24 15:21) HPI Comments Details: Alex is a very pleasant 39-year-old male patient of Dr. Tran. He presents to the office today for - vasectomy procedure Accompanied by his Vasectomy procedure The patient presents for vasectomy consultation.? 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 Current occupational exposures/hazards: No Cognitive needs: No Hearing needs: No Vision needs: Yes Review of Systems Const Denies chills and Denies fever(s) Card Reports no additional complaints and Denies syncope Resp Denies cough GI Denies abdominal pain and Denies heartburn Reports as per HPI and Denies change in libido Neuro Denies syncope Psych Denies change in libido Endo Denies change in libido Physical Exam Const General: cooperative, healthy appearing, comfortable and no acute distress Orientation/consciousness: patient oriented x3 HEENT Face and sinus: Yes normal facial exam Mouth: moist mucous membranes Neck Neck: Yes normal visual inspection, Yes full ROM and Yes trachea midline Chest Chest palpation & inspection: normal inspection of the chest Resp Effort & Inspection: normal respiratory effort, able to speak in complete sentences and no respiratory distress GI Inspection: Yes normal to inspection Back/Spine/Pelvis Cervical Spine: normal cervical lordosis Thoracic/Lumbar Spine: thoracic and lumbar spine normal to inspection Skin General skin exam: no rashes or lesions noted Neuro General: patient oriented x3, gait normal, tone normal and moves all extremities Extrem General: Yes normal to inspection and Yes capillary refill normal Office Procedures Vasectomy Details: Preoperative diagnosis: Anxiety regarding Postoperative diagnosis: Anxiety regarding unplanned Procedure: Bilateral vasectomy Informed consent had been completed. Preoperative and postoperative instructions were provided to the patient. The patient has transportation to home identified at the completion of the procedure. Anti-anxiolytic prescription medication had been taken after consent verification and all questions answered. Tylenol with Codeine pain medication was also provided. The penis was elevated using a rubber band that was attached to the patient's shirt. Both vasa were palpated through the skin using a 3 finger technique and the penoscrotal junction was prepped with Betadine. After Betadine application the left vas was elevated using a 3 finger grasping technique. 1% lidocaine was used to create a subdermal bubble. Further anesthetic was then advanced using the 25-gauge needle along the vasa in a proximal fashion. Approximately 2 minutes were allowed to for local anesthetic uptake. Using the sharp spreading instrument the scrotal skin was spread longitudinally in line with the vasa until the subdermal layer had been divided. The vasa was then elevated from the scrotum using a ring clamp. Care was taken to elevate the superior portion of the vasa by rotating the ring clamp in a caudad direction. The battery powered cautery was used to divide the vasal sheath in a longitudinal direction on the exposed vasa and to strip the vasal sheath from the vasa. A 2nd narrower ring clamp was placed on the exposed vas and used to lift the vas from the vasal sheath. so it grasped the elevated vas. The cautery was used to divide vasal attachments and allow full exposure of a small loop of vasa. The sharp spreading instrument was then used to create a tunnel under the vasa and spread to allow the blood vessels of the vasa to retract from the vasa. A mosquito clamp was placed on the proximal portion of the vas. The battery-powered cautery was used to make a partial division in the proximal vas and then inserted in order to cauterize the proximal end of the vas. This was then cut and allowed to retract into the vasal sheath. The mosquito was then used to twist the vasa 180 degrees creating a fascial interposition. Using a 4-0 chromic suture the fascial interposition was sutured closed. The distal portion of the vas was then cut in order to obtain a segment of vasa. The vasa were allowed to retract back into the scrotum. A small snap was then used to approximate the skin edges and allow hemostasis without placement of a suture. A similar procedure was repeated on the right side. He tolerated the procedure well. Triple antibiotic was applied. A gauze was applied. An ice pack was applied to assist with minimizing swelling. Postoperative instructions were confirmed. He understands the need to continue to use control methods. A semen sample should be brought for inspection under the microscope in 10-12 weeks. CPT 92068 22066 - Vasectomy Office Meds lidocaine (PF) 10 mg/mL (1 %) injection solution Performing Provider: Balaji Fitzpatrick MD Performing Location: [facility] Administered by: Matilde Valencia RN on 10/10/24 15:30 Dose Route Admin Location Dispensed Lot Number Expiration Date [facility] Fashion Editor 10 mL Infiltration 10 mL Assessment & Plan Assessment & Plan (1) Anxiety about health: Code(s): R45.89 - Other symptoms and signs involving emotional state Category: Medical Plan 3m f/u semen review Orders: Orders AMB Vasectomy 10/10/24 R45.89 - Other symptoms and signs involving emotional state Coding Level of Care Code Procedure Only Diagnoses Anxiety about health R45.89 CPT Codes Office Procedure - CPT: 73407 - Vasectomy ([id number])
== END 2024-10-10 16:02 | disposition home or self-care (01) ==
PROVIDERS: PCP Family Medicine; Visit Provider Urology
DX: Z30.2 Encounter for sterilization (principal)
CPT/HCPCS: 55250

== ENCOUNTER → 2024-10-10 14:50 | Outpatient (BNVA) | payer BC, SELFPAY | PROVIDERS: PCP Family Medicine; Visit Provider Urology | DX: Z30.2 Encounter for sterilization (principal); F41.8 Other specified anxiety disorders | CPT/HCPCS: 55250; J2003 ==

== ENCOUNTER 2025-01-29 15:04 | Outpatient (AMB) | payer BC, SELFPAY ==
--- NOTE | 2025-01-29 15:13 | A.OFFVIS_ITS ---
Intake Visit Reasons: 12w semen analysis Intake Note: Patient is present for 12W SEMEN ANALYSIS Urology Medication:NONE Antibiotic Allergy:NONE Blood Thinner:NONE Frame Cleaner Required: No Allergies No Known Allergies Allergy (Verified 01/29/25 15:14) HPI Comments Details: Alex is a very pleasant 39-year-old male patient of Dr. Tran. He presents to the office today for - vasectomy procedure No sperm seen on high-powered field evaluation Minimal issues post vas Vasectomy follow-up The patient presents for vasectomy follow-up.? 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 Current occupational exposures/hazards: No Cognitive needs: No Hearing needs: No Vision needs: Yes Review of Systems Const Denies chills and Denies fever(s) Card Reports no additional complaints and Denies syncope Resp Denies cough GI Denies abdominal pain and Denies heartburn Reports as per HPI and Denies change in libido Neuro Denies syncope Psych Denies change in libido Endo Denies change in libido Physical Exam Const General: cooperative, healthy appearing, comfortable and no acute distress Orientation/consciousness: patient oriented x3 HEENT Face and sinus: Yes normal facial exam Mouth: moist mucous membranes Neck Neck: Yes normal visual inspection, Yes full ROM and Yes trachea midline Chest Chest palpation & inspection: normal inspection of the chest Resp Effort & Inspection: normal respiratory effort, able to speak in complete sentences and no respiratory distress GI Inspection: Yes normal to inspection Back/Spine/Pelvis Cervical Spine: normal cervical lordosis Thoracic/Lumbar Spine: thoracic and lumbar spine normal to inspection Skin General skin exam: no rashes or lesions noted Neuro General: patient oriented x3, gait normal, tone normal and moves all extremities Extrem General: Yes normal to inspection and Yes capillary refill normal Assessment & Plan Assessment & Plan (1) Anxiety about health: Code(s): R45.89 - Other symptoms and signs involving emotional state Category: Medical Plan P.r.n. follow-up Patient Instructions: This note is constructed using voice recognition software. While every effort has been made to ensure accuracy quality assurance lab technician errors may have been included. Imaging studies, laboratory and physical exam results were discussed and reviewed in detail. No major barriers to patient understanding were identified. An opportunity to ask questions regarding the treatment plan was provided. All questions were answered. The patient expressed understanding and agreement with the above treatment plan. The patient is aware they should contact our office by phone for worsening of their current condition or the appearance of new urologic symptoms. Compliance is encouraged with any medications and followup testing that is ordered. It is a privilege to participate in the urologic care of your patient. If you have any questions or concerns regarding treatment for the above conditions, or other urologic issues, please do not hesitate to contact me. The office telephone contact is [phone]. Sincerely, Dr Balaji Fitzpatrick MD, [facility] - Urology Compassionate Specialist Care for the Genitourinary System Coding Level of Care Code Est Pt Level 3 (83601) Diagnoses Anxiety about health R45.89
== END 2025-01-29 15:57 | disposition home or self-care (01) ==
LOC: HO.HUSH 15:04
PROVIDERS: PCP Family Medicine; Visit Provider Urology
DX: R45.89 Other symptoms and signs involving emotional state (principal)
CPT/HCPCS: 99213